=== PATIENT | female | born 1975 | race African-American/Black ===

== ENCOUNTER 2017-03-30 21:29 | Emergency (ER) | payer OTHER ==
[~2017-03-30] VITALS: Ht 152.4 cm; Wt 52.2 kg
[~2017-03-30 21:29] MED LIST: BACTRIM,SEPT1 TABLET PO; CEPHALEXIN500 MG PO; CLONIDINE HCL0.1 MG PO; FLUOXETINE HCL20 MG PO; IMODIUM MS REL1 EACH PO; ISENTRESS400 MG PO; KEFLEX500 MG PO; LABETALOL HCL200 MG PO; LISINOPRIL10 MG PO; MOTRIN600 MG PO; NAPROSYN500 MG PO; NORMODYNE,TRAN200 MG PO; OXAYDO5 MG PO; PERCOCET 5/31 TABLET PO; PRINIVIL10 MG PO; TRUVADA1 TABLET PO; ULTRACET1 TABLET PO; ZOFRAN4 MG PO
[2017-03-30 21:35] VITALS: BP 160/106
== END 2017-03-30 22:45 | disposition left against medical advice (07) ==
LOC: EME 21:29
DX: R22.31 Localized swelling, mass and lump, right upper limb (principal); L02.415 Cutaneous abscess of right lower limb; I10 Essential (primary) hypertension; Z91.14 Patient's other noncompliance with medication regimen; K21.9 Gastro-esophageal reflux disease without esophagitis; F41.9 Anxiety disorder, unspecified; F32.9 Major depressive disorder, single episode, unspecified; F17.200 Nicotine dependence, unspecified, uncomplicated; F11.10 Opioid abuse, uncomplicated; F10.10 Alcohol abuse, uncomplicated
CPT/HCPCS: 99281; 99283

== ENCOUNTER 2017-03-31 15:48 | Emergency (ER) | payer OTHER ==
[~2017-03-31] VITALS: Ht 152.4 cm; Wt 51.3 kg
[2017-03-31 17:52] LABS: EOSINOPHIL (%) 0.9 % (0-5); EOSINOPHIL COUNT 0.1 K/uL (0-0.3); HEMATOCRIT 37.9 % (36.0-46.0); IMMATURE GRANULOCYTE (%) 0.7 % (0.0-0.7); IMMATURE GRANULOCYTE COUNT 0.1 K/uL; INSTRUMENT ABS NEUTROPHIL CT 8.6 K/uL; LYMPHOCYTE COUNT 1.4 K/uL (1.0-2.8); MCH 28.4 PG (29.0-34.0); MCHC 33.2 G/DL (30.0-36.0); MCV 85.4 FL (83-99); MEAN PLAT.VOLUME 9.5 uM^3 (9.5-12.4); MONOCYTE (%) 10.5 % (3-12); MONOCYTE COUNT 1.2 K/uL (0-0.8); NEUTROPHIL (%) 75.3 % (45-76); NEUTROPHIL COUNT 8.6 K/uL (1.8-6.4); PLATELET COUNT 282 K/uL (156-360); RBC DIS.WIDTH-CV 12.9 % (11.8-14.6); RBC DIS.WIDTH-SD 40.3 % (39-53); RED BLOOD COUNT 4.44 M/uL (3.80-5.20); WHITE BLOOD COUNT 11.5 K/uL (4.1-10.2)
[2017-03-31 18:00] LABS: CHLORIDE 102 mEq/L (99-109); SODIUM 136 mEq/L (136-147)
[2017-03-31 18:02] LABS: GLUCOSE 96 mg/dL (70-99)
[2017-03-31 18:03] LABS: ANION GAP 9 MEQ/L (2-14)
[2017-03-31 18:05] LABS: GFR ESTIMATE (CALCULATED) > 59 mL/min/
[2017-03-31 18:06] LABS: UREA NITROGEN (BUN) 6 mg/dL (9-23)
[2017-04-01 00:42] VITALS: BP 152/88
== END 2017-04-01 01:09 | disposition short-term general hospital (02) ==
LOC: EME 15:48
PROVIDERS: Emergency Medicine
PROC: 0H9HXZZ Drainage of Right Upper Leg Skin, External Approach (ICD-10-PCS; principal; 2017-03-31)
DX: L02.415 Cutaneous abscess of right lower limb (principal); I96 Gangrene, not elsewhere classified; R60.1 Generalized edema; M79.644 Pain in right finger(s); W49.04XA Ring or other jewelry causing external constriction, initial encounter
CPT/HCPCS: 73130; 73701; 80048; 83605; 85025; 87040; 99281; 99285; J2270; J7030

== ENCOUNTER 2017-06-24 13:48 | Emergency (ER) | payer OTHER ==
[~2017-06-24] VITALS: Ht 167.6 cm; Wt 47.3 kg
[2017-06-24 16:04] VITALS: BP 108/64
== END 2017-06-24 16:04 | disposition home or self-care (01) ==
LOC: EME → EDBD 13:48 → EME 13:48
DX: T65.892A Toxic effect of other specified substances, intentional self-harm, initial encounter (principal); F11.10 Opioid abuse, uncomplicated; F17.200 Nicotine dependence, unspecified, uncomplicated; I10 Essential (primary) hypertension; F32.9 Major depressive disorder, single episode, unspecified; F41.9 Anxiety disorder, unspecified; Z91.14 Patient's other noncompliance with medication regimen; Z91.19 Patient's noncompliance with other medical treatment and regimen
CPT/HCPCS: 99281; 99283

== ENCOUNTER 2017-07-12 13:59 | Inpatient (IN) | payer OTHER ==
[~2017-07-12] VITALS: Ht 152.4 cm; Wt 45.0 kg
[2017-07-12 15:01] LABS: BASOPHIL (%) 0.2 % (0-1); BASOPHIL COUNT 0.1 K/uL (0-0.1); EOSINOPHIL (%) 0 % (0-5); HEMOGLOBIN 11.1 G/DL (11.9-15.5); IMMATURE GRANULOCYTE (%) 2.4 % (0.0-0.7); LYMPHOCYTE COUNT 1.3 K/uL (1.0-2.8); MCH 26.2 PG (29.0-34.0); MCHC 32.6 G/DL (30.0-36.0); MCV 80.4 FL (83-99); MONOCYTE (%) 4.7 % (3-12); MONOCYTE COUNT 1.2 K/uL (0-0.8); NEUTROPHIL (%) 87.7 % (45-76); NEUTROPHIL COUNT 22.9 K/uL (1.8-6.4); PLATELET COUNT 368 K/uL (156-360); RBC DIS.WIDTH-CV 15.7 % (11.8-14.6); RBC DIS.WIDTH-SD 45.3 % (39-53); RED BLOOD COUNT 4.23 M/uL (3.80-5.20); WHITE BLOOD COUNT 26.2 K/uL (4.1-10.2)
[2017-07-12 15:06] LABS: INTER. NORMALIZED RATIO 1.5
[2017-07-12 15:08] LABS: ALBUMIN 3.6 g/dL (3.2-4.8); CHLORIDE 98 mEq/L (99-109); POTASSIUM 4.1 mEq/L (3.7-5.4); PTT 29.3 SEC (25-37); SODIUM 129 mEq/L (136-147)
[2017-07-12 15:10] LABS: GLUCOSE 173 mg/dL (70-99)
[2017-07-12 15:11] LABS: TOTAL PROTEIN 8.8 g/dL (6.4-8.3)
[2017-07-12 15:12] LABS: TOTAL BILIRUBIN 0.5 mg/dL (0.0-1.0)
[2017-07-12 15:14] LABS: ALKALINE PHOSPHATASE 134 IU/L (3-129); GFR ESTIMATE (CALCULATED) > 59 mL/min/
[2017-07-12 15:15] LABS: UREA NITROGEN (BUN) 10 mg/dL (9-23)
[2017-07-12 15:16] LABS: AST (GOT) 23 IU/L (2-34)
[2017-07-12 15:17] LABS: ALT (GPT) 13 IU/L (3-49)
[2017-07-12] MEDS ORDERED: TIVICAY50 MG PO (17:57)
[2017-07-12] MEDS ORDERED: PREZCOBIX 8001 EACH PO (17:57)
[2017-07-12 19:38] LABS: APPEARANCE CLEAR ((CLEAR)); BILIRUBIN NEGATIVE; BLOOD NEGATIVE; COLOR STRAW ((YELLOW)); GLUCOSE (STRIP) NEGATIVE; KETONES NEGATIVE; LEUKOCYTES SMALL; NITRITE NEGATIVE; PROTEIN (STRIP) NEGATIVE; SPECIFIC GRAVITY 1.004 (1.000-1.030); UROBILINOGEN 0.2 MG/DL (0.2-1.0)
[2017-07-12 19:45] LABS: BACTERIA RARE /HPF; EPITHELIAL CELLS RARE /HPF; MUCUS NONE SEEN /LPF; RED BLOOD CELLS 0-5 /HPF (0-5); UCUL ADDED? NO; WHITE BLOOD CELLS 0-5 /HPF (0-5)
[2017-07-12 19:48] LABS: AMPHETAMINE NEGATIVE (500 ng/mL); BARBITURATES NEGATIVE (200 ng/mL); BENZODIAZEPINES NEGATIVE (150 ng/mL); BUPRENORPHINE NEGATIVE (10 ng/mL); COCAINE NEGATIVE (150 ng/mL); METHADONE NEGATIVE (200 ng/mL); METHAMPHETAMINE NEGATIVE (500 ng/mL); OPIATES (MORPHINE) PRESUMPTIVE POSITIVE (100 ng/mL); OXYCODONE NEGATIVE (100 ng/mL); PHENCYCLIDINE NEGATIVE (25 ng/mL); PROPOXYPHENE NEGATIVE (300 ng/mL); THC CANNABINOIDS NEGATIVE (50 ng/mL); TRICYCLIC ANTIDEPRESSANTS NEGATIVE (300 ng/mL)
[2017-07-12 20:15] LABS: QUANTITATIVE HCG < 4.0 MIU/ML
[2017-07-12 22:00] VITALS: BP 129/88
[2017-07-13 08:06] VITALS: BP 99/52
[2017-07-13 08:51] LABS: HEMATOCRIT 28.9 % (36.0-46.0); HEMOGLOBIN 9.2 G/DL (11.9-15.5); MCH 25.8 PG (29.0-34.0); MCHC 31.8 G/DL (30.0-36.0); PLATELET COUNT 335 K/uL (156-360); RBC DIS.WIDTH-CV 15.5 % (11.8-14.6); RBC DIS.WIDTH-SD 46.3 % (39-53); RED BLOOD COUNT 3.57 M/uL (3.80-5.20); WHITE BLOOD COUNT 15.7 K/uL (4.1-10.2)
[2017-07-13 10:27] LABS: CHLORIDE 101 MEQ/L (99-109); GFR ESTIMATE (CALCULATED) > 59 mL/min/; POTASSIUM 4.1 MEQ/L (3.7-5.4); SODIUM 129 MEQ/L (136-147); UREA NITROGEN (BUN) 12 mg/dL (9-23)
[2017-07-13 10:29] LABS: GLUCOSE 99 mg/dL (70-99)
[2017-07-13 11:08] VITALS: BP 120/61
[2017-07-13 16:12] VITALS: BP 113/59
[2017-07-13 20:38] VITALS: BP 123/59
[2017-07-13 23:19] VITALS: BP 134/78
[2017-07-14 06:10] LABS: HEMATOCRIT 27.7 % (36.0-46.0); HEMOGLOBIN 8.6 G/DL (11.9-15.5); MCV 83.7 FL (83-99); PLATELET COUNT 327 K/uL (156-360); RBC DIS.WIDTH-CV 15.8 % (11.8-14.6); RBC DIS.WIDTH-SD 48.1 % (39-53); RED BLOOD COUNT 3.31 M/uL (3.80-5.20); WHITE BLOOD COUNT 9.7 K/uL (4.1-10.2)
[2017-07-14 06:45] LABS: CREATININE 0.9 MG/DL (0.6-1.3); GFR ESTIMATE (CALCULATED) > 59 mL/min/
[2017-07-14 06:49] LABS: ALBUMIN 2.9 G/DL (3.2-4.8); ALKALINE PHOSPHATASE 101 IU/L (3-129); ALT (GPT) 7 IU/L (3-49); AST (GOT) 15 IU/L (2-34); CHLORIDE 102 MEQ/L (99-109); CREATININE 0.9 MG/DL (0.6-1.3); GFR ESTIMATE (CALCULATED) > 59 mL/min/; GLUCOSE 100 mg/dL (70-99); POTASSIUM 3.5 MEQ/L (3.7-5.4); TOTAL BILIRUBIN 0.4 MG/DL (0.0-1.0); TOTAL PROTEIN 6.9 G/DL (6.4-8.3); UREA NITROGEN (BUN) 10 mg/dL (9-23)
[2017-07-14 06:51] LABS: SODIUM 136 MEQ/L (136-147)
[2017-07-14 07:56] VITALS: BP 119/68
[2017-07-14 16:11] VITALS: BP 119/70
[2017-07-14 23:35] VITALS: BP 129/81
[2017-07-15 07:34] LABS: CREATININE 0.7 MG/DL (0.6-1.3); GFR ESTIMATE (CALCULATED) > 59 mL/min/
[2017-07-15 08:05] VITALS: BP 159/91
[2017-07-15 11:03] LABS: HEPATITIS C ANTIBODY Nonreactive
[2017-07-15 16:45] VITALS: BP 148/68
[2017-07-15 23:25] VITALS: BP 183/85
[2017-07-16 08:00] VITALS: BP 155/90
[2017-07-16 15:27] VITALS: BP 168/87
[2017-07-16 23:15] VITALS: BP 160/90
[2017-07-17 07:09] LABS: BASOPHIL (%) 1.2 % (0-1); BASOPHIL COUNT 0.1 K/uL (0-0.1); EOSINOPHIL (%) 3.1 % (0-5); EOSINOPHIL COUNT 0.1 K/uL (0-0.3); HEMATOCRIT 29.6 % (36.0-46.0); HEMOGLOBIN 9.7 G/DL (11.9-15.5); IMMATURE GRANULOCYTE (%) 3.8 % (0.0-0.7); LYMPHOCYTE (%) 33.9 % (15-42); LYMPHOCYTE COUNT 1.4 K/uL (1.0-2.8); MCH 26.4 PG (29.0-34.0); MCHC 32.8 G/DL (30.0-36.0); MCV 80.7 FL (83-99); MONOCYTE COUNT 0.4 K/uL (0-0.8); RBC DIS.WIDTH-CV 15.4 % (11.8-14.6); RED BLOOD COUNT 3.67 M/uL (3.80-5.20); WHITE BLOOD COUNT 4.2 K/uL (4.1-10.2)
[2017-07-17 07:16] LABS: PLATELET COUNT 441 K/uL (156-360)
[2017-07-17 07:28] VITALS: BP 189/95
[2017-07-17 15:48] VITALS: BP 185/92
[2017-07-17 23:28] VITALS: BP 152/70
[2017-07-18 06:07] LABS: BASOPHIL (%) 0.7 % (0-1); EOSINOPHIL (%) 3.3 % (0-5); EOSINOPHIL COUNT 0.1 K/uL (0-0.3); HEMOGLOBIN 9.2 G/DL (11.9-15.5); IMMATURE GRANULOCYTE (%) 3.7 % (0.0-0.7); LYMPHOCYTE (%) 40.7 % (15-42); LYMPHOCYTE COUNT 1.7 K/uL (1.0-2.8); MCH 25.7 PG (29.0-34.0); MCHC 31.7 G/DL (30.0-36.0); MONOCYTE (%) 9.1 % (3-12); MONOCYTE COUNT 0.4 K/uL (0-0.8); NEUTROPHIL (%) 42.5 % (45-76); NEUTROPHIL COUNT 1.8 K/uL (1.8-6.4); PLATELET COUNT 429 K/uL (156-360); RBC DIS.WIDTH-CV 15.6 % (11.8-14.6); RBC DIS.WIDTH-SD 45.3 % (39-53); RED BLOOD COUNT 3.58 M/uL (3.80-5.20); WHITE BLOOD COUNT 4.3 K/uL (4.1-10.2)
[2017-07-18 06:27] LABS: CHLORIDE 106 MEQ/L (99-109); CREATININE 0.8 MG/DL (0.6-1.3); GFR ESTIMATE (CALCULATED) > 59 mL/min/; GLUCOSE 95 mg/dL (70-99); POTASSIUM 3.6 MEQ/L (3.7-5.4); SODIUM 139 MEQ/L (136-147); UREA NITROGEN (BUN) 6 mg/dL (9-23)
[2017-07-18 08:14] VITALS: BP 164/89
[2017-07-18 15:31] VITALS: BP 188/108
[2017-07-18 16:46] VITALS: BP 160/80
[2017-07-19 00:32] VITALS: BP 178/91
[2017-07-19 05:56] LABS: CHLORIDE 103 MEQ/L (99-109); CREATININE 0.8 MG/DL (0.6-1.3); GFR ESTIMATE (CALCULATED) > 59 mL/min/; GLUCOSE 86 mg/dL (70-99); POTASSIUM 3.8 MEQ/L (3.7-5.4); SODIUM 137 MEQ/L (136-147); UREA NITROGEN (BUN) 8 mg/dL (9-23)
[2017-07-19 08:12] VITALS: BP 148/81
[2017-07-19 16:20] VITALS: BP 136/76
[2017-07-20] VITALS: BP 160/98
[2017-07-20 08:40] VITALS: BP 145/87
[2017-07-20] MEDS ORDERED: LABETALOL HCL100 MG PO (11:12)
[2017-07-20] MEDS ORDERED: CHILDREN'S100 MG/51 PO (11:12)
[2017-07-20] MEDS ORDERED: AMOX TR-K CLV1 EAC4 PO (11:12)
[2017-07-20] MEDS ORDERED: ESCITALOPRAM OX10 MG PO (11:13)
[2017-07-20] MEDS ORDERED: Thiamine,Vitamin B1 PO (11:20)
[2017-07-20] MEDS ORDERED: FOLIC ACID1 MG PO (11:20)
[2017-07-20] MEDS ORDERED: OXYCODONE HCL5 MG PO (11:22)
== END 2017-07-20 12:11 | disposition home health service (06) | DRG 579 ==
LOC: EME 13:59 → 3EAST 17:51 → EDOF 17:51 → 3EAST 17:51 → CANRESERV 18:14 → ENRESERV 18:14 → 3EAST 20:40 → ENRESERVTM 20:40 → 3EAST 07-18 07:44
PROVIDERS: Emergency Medicine; Family Medicine Sports Medicine; Internal Medicine
PROC: 0J9M0ZZ Drainage of Left Upper Leg Subcutaneous Tissue and Fascia, Open Approach (ICD-10-PCS; principal; 2017-07-13)
DX: L02.416 Cutaneous abscess of left lower limb (principal); L03.116 Cellulitis of left lower limb; B95.5 Unspecified streptococcus as the cause of diseases classified elsewhere; B20 Human immunodeficiency virus [HIV] disease; E87.1 Hypo-osmolality and hyponatremia; F33.9 Major depressive disorder, recurrent, unspecified; F11.23 Opioid dependence with withdrawal; I10 Essential (primary) hypertension; T40.1X1A Poisoning by heroin, accidental (unintentional), initial encounter; F17.200 Nicotine dependence, unspecified, uncomplicated
CPT/HCPCS: 71046; 73701; 80048; 80053; 80202; 81003; 82565; 83605; 83880; 84702; 84999; 85025; 85027; 85610; 85730; 86803; 87040; 87070; 87075; 87076; 87205; 93005; 93306; 99281; 99285; J0330; J1100; J1170; J1885; J2060; J2250; J2405; J2543; J3010; J3260; J3370; J7030; J7050; S0020

== ENCOUNTER 2017-08-31 22:38 | Emergency (ER) | payer OTHER ==
[~2017-08-31] VITALS: Ht 152.4 cm; Wt 51.3 kg
[~2017-08-31 22:38] MED LIST changes: +AMOX TR-K CLV1 EAC4 PO; +CHILDREN'S100 MG/51 PO; +ESCITALOPRAM OX10 MG PO; +FOLIC ACID1 MG PO; +LABETALOL HCL100 MG PO; +OXYCODONE HCL5 MG PO; +PREZCOBIX 8001 EACH PO; +TIVICAY50 MG PO; +Thiamine,Vitamin B1 PO
[2017-09-01] MEDS ORDERED: ROXICODONE5 MG PO (00:14)
[2017-09-01] MEDS ORDERED: CLEOCIN300 MG PO (00:14)
[2017-09-01 00:26] VITALS: BP 159/94
== END 2017-09-01 00:27 | disposition home or self-care (01) ==
LOC: EME 22:38
PROC: 0H98XZZ Drainage of Buttock Skin, External Approach (ICD-10-PCS; principal; 2017-08-31)
DX: L02.31 Cutaneous abscess of buttock (principal); I10 Essential (primary) hypertension; F17.200 Nicotine dependence, unspecified, uncomplicated; Z88.6 Allergy status to analgesic agent
CPT/HCPCS: 87070; 87077; 87147; 87205; 99281; 99284

== ENCOUNTER 2017-09-03 13:52 | Emergency (ER) | payer OTHER ==
[~2017-09-03] VITALS: Ht 152.4 cm; Wt 50.4 kg
[~2017-09-03 13:52] MED LIST changes: +CLEOCIN300 MG PO; +ROXICODONE5 MG PO
[2017-09-03] MEDS ORDERED: ROXICODONE5 MG PO (16:01)
[2017-09-03 16:25] VITALS: BP 149/91
== END 2017-09-03 16:25 | disposition home or self-care (01) ==
LOC: EME 13:52
DX: L02.31 Cutaneous abscess of buttock (principal); Z48.01 Encounter for change or removal of surgical wound dressing; I10 Essential (primary) hypertension; Z88.6 Allergy status to analgesic agent
CPT/HCPCS: 99281; 99283

== ENCOUNTER 2017-09-11 12:54 | Emergency (ER) | payer OTHER ==
[~2017-09-11] VITALS: Ht 152.4 cm; Wt 50.5 kg
[2017-09-11 15:57] LABS: BASOPHIL (%) 0.2 % (0-1); EOSINOPHIL (%) 0.4 % (0-5); HEMATOCRIT 39.9 % (36.0-46.0); IMMATURE GRANULOCYTE (%) 0.4 % (0.0-0.7); LYMPHOCYTE COUNT 1.6 K/uL (1.0-2.8); MCH 27.2 PG (29.0-34.0); MCHC 32.6 G/DL (30.0-36.0); MCV 83.5 FL (83-99); MONOCYTE COUNT 0.3 K/uL (0-0.8); NEUTROPHIL COUNT 3.7 K/uL (1.8-6.4); PLATELET COUNT 349 K/uL (156-360); RBC DIS.WIDTH-CV 16.3 % (11.8-14.6); RBC DIS.WIDTH-SD 49.4 % (39-53); RED BLOOD COUNT 4.78 M/uL (3.80-5.20); WHITE BLOOD COUNT 5.7 K/uL (4.1-10.2)
[2017-09-11 16:06] LABS: CHLORIDE 104 mEq/L (99-109); POTASSIUM 4.3 mEq/L (3.7-5.4); SODIUM 138 mEq/L (136-147)
[2017-09-11 16:07] LABS: GLUCOSE 94 mg/dL (70-99)
[2017-09-11 16:11] LABS: CREATININE 0.8 mg/dL (0.6-1.3); GFR ESTIMATE (CALCULATED) > 59 mL/min/
[2017-09-11 16:12] LABS: UREA NITROGEN (BUN) 11 mg/dL (9-23)
[2017-09-11] MEDS ORDERED: BACTRIM,SEPT1 TABLET PO (17:59)
[2017-09-11] MEDS ORDERED: MOTRIN800 MG PO (18:01)
[2017-09-11 18:10] VITALS: BP 172/98
== END 2017-09-11 18:11 | disposition home or self-care (01) ==
LOC: EME 12:54
PROVIDERS: Physician Assistant
DX: L02.31 Cutaneous abscess of buttock (principal); I10 Essential (primary) hypertension; M25.552 Pain in left hip; Z48.01 Encounter for change or removal of surgical wound dressing; B20 Human immunodeficiency virus [HIV] disease; F17.200 Nicotine dependence, unspecified, uncomplicated
CPT/HCPCS: 72170; 80048; 83605; 85025; 99281; 99284

== ENCOUNTER 2017-11-29 13:09 | Emergency (ER) | payer OTHER ==
[~2017-11-29] VITALS: Ht 162.6 cm; Wt 49.4 kg
[~2017-11-29 13:09] MED LIST changes: +MOTRIN800 MG PO
[2017-11-29] MEDS ORDERED: MOTRIN600 MG PO (14:04)
[2017-11-29] MEDS ORDERED: BACTRIM,SEPT1 TABLET PO (14:04)
[2017-11-29] MEDS ORDERED: KEFLEX500 MG PO (14:04)
[2017-11-29 14:22] VITALS: BP 140/81
== END 2017-11-29 14:24 | disposition home or self-care (01) ==
LOC: EME 13:09
PROC: 0H98XZZ Drainage of Buttock Skin, External Approach (ICD-10-PCS; principal; 2017-11-29)
DX: L02.31 Cutaneous abscess of buttock (principal); Z88.6 Allergy status to analgesic agent
CPT/HCPCS: 87070; 87075; 87205; 99281; 99284

== ENCOUNTER 2017-12-28 13:24 | Emergency (ER) | payer OTHER ==
[~2017-12-28] VITALS: Ht 165.1 cm; Wt 50.0 kg
[2017-12-28 14:34] LABS: HEMATOCRIT 42.4 % (36.0-46.0); MCH 28.2 PG (29.0-34.0); MCV 85.5 FL (83-99); PLATELET COUNT 254 K/uL (156-360); RBC DIS.WIDTH-CV 15.1 % (11.8-14.6); RBC DIS.WIDTH-SD 47.2 % (39-53); RED BLOOD COUNT 4.96 M/uL (3.80-5.20)
[2017-12-28 14:45] LABS: CHLORIDE 105 mEq/L (99-109); POTASSIUM 4.6 mEq/L (3.7-5.4); SODIUM 141 mEq/L (136-147)
[2017-12-28 14:47] LABS: GLUCOSE 93 mg/dL (70-99); TOTAL PROTEIN 9.2 g/dL (6.4-8.3)
[2017-12-28 14:49] LABS: TOTAL BILIRUBIN 0.4 mg/dL (0.0-1.0)
[2017-12-28 14:50] LABS: SERUM ETHYL ALCOHOL < 10 mg/dL
[2017-12-28 14:51] LABS: ALKALINE PHOSPHATASE 97 IU/L (3-129); CREATININE 1.8 mg/dL (0.6-1.3); GFR ESTIMATE (CALCULATED) 40 mL/min/
[2017-12-28 14:52] LABS: AST (GOT) 28 IU/L (2-34); UREA NITROGEN (BUN) 27 mg/dL (9-23)
[2017-12-28 14:54] LABS: ALT (GPT) 16 IU/L (3-49)
[2017-12-28 21:00] VITALS: BP 118/67
== END 2017-12-28 21:00 | disposition home or self-care (01) ==
LOC: EME 13:24
PROVIDERS: Emergency Medicine
DX: F31.9 Bipolar disorder, unspecified (principal); F16.10 Hallucinogen abuse, uncomplicated; N28.9 Disorder of kidney and ureter, unspecified; F11.20 Opioid dependence, uncomplicated; F41.9 Anxiety disorder, unspecified; K21.9 Gastro-esophageal reflux disease without esophagitis; Z88.6 Allergy status to analgesic agent; F17.200 Nicotine dependence, unspecified, uncomplicated
CPT/HCPCS: 80053; 81003; 85027; 90839; 99281; 99285; G0480; J1630; J2060